=== PATIENT | male | born 1945 | race Hispanic/Latino ===

== ENCOUNTER 2019-04-04 13:41 | Outpatient (CLI) | payer OTHER ==
[2019-04-04 14:03] LABS: PLATELET COUNT 240 K/uL (142-355)
[2019-04-04 14:21] LABS: POTASSIUM 4.9 mmol/L (3.6-5.2)
== END 2019-04-04 20:15 | disposition home or self-care (01) ==
LOC: LAB 13:41
PROVIDERS: Nurse Practitioner Family
DX: Z00.00 Encounter for general adult medical examination without abnormal findings (principal); F41.8 Other specified anxiety disorders; G47.09 Other insomnia; E78.49 Other hyperlipidemia; F32.9 Major depressive disorder, single episode, unspecified; K21.9 Gastro-esophageal reflux disease without esophagitis; I10 Essential (primary) hypertension; Z79.899 Other long term (current) drug therapy; N40.0 Benign prostatic hyperplasia without lower urinary tract symptoms
CPT/HCPCS: 80053; 80061; 83036; 84153; 84443; 85027